=== PATIENT | male | born 1945 | race Caucasian/White ===

== ENCOUNTER 2018-09-02 21:04 | Emergency (ER) | payer MEDICARE, OTHER ==
[2018-09-02] MEDS ORDERED: Ibuprofen TAB* 600 MG PO ONE (21:36)
[2018-09-02] MEDS ORDERED: Sulfamethox/Trimethoprim DS 800/160* TAB PO ONE ×2 (21:36)
--- NOTE | 2018-09-02 21:38 | UC ---
HPI Febrile Illness - HPI Summary HPI Summary: 72-year-old male comes in with a chief complaint of dysuria fevers chills and feeling ill. Symptoms started this morning. He reports this is what he feels like when he has urinary tract infection. No flank pain. He does have some suprapubic discomfort. - History of Current Complaint Chief Complaint: [facility]CG[facility] Time Seen by Provider: 09/02/18 21:12 Pain Intensity: 7 - Allergy/Home Medications Allergies/Adverse Reactions: Allergies Allergy/AdvReac Type Severity Reaction Status Date / Time No Known Allergies Allergy Verified 09/02/18 21:15 Home Medications: Home Medications Atorvastatin* [Lipitor 10 MG*] 1 tab DAILY 09/02/18 [History Confirmed 09/02/18] Tamsulosin CAP* [Flomax CAP*] 1 tab DAILY 09/02/18 [History Confirmed 09/02/18] PMH/Surg Hx/FS Hx/Imm Hx Previously Healthy: Yes - BPH - Surgical History Surgical History: None - Family History Known Family History: Positive: Non-Contributory - Social History Alcohol Use: Rare Substance Use Type: None Smoking Status (MU): Never Smoked Tobacco Review of Systems All Other Systems Reviewed And Are Negative: Yes Constitutional: Positive: Fever, Chills Skin: Positive: Negative Eyes: Positive: Negative ENT: Positive: Negative Respiratory: Positive: Negative Cardiovascular: Positive: Negative Gastrointestinal: Positive: Other - SEE HPI Genitourinary: Positive: Dysuria, Frequency, Urgency Motor: Positive: Negative Neurovascular: Positive: Negative Musculoskeletal: Positive: Negative Neurological: Positive: Negative Psychological: Positive: Negative Is Patient Immunocompromised?: No Physical Exam Triage Information Reviewed: Yes Appearance: No Pain Distress, Well-Nourished, Ill-Appearing - MILD Vital Signs: Initial Vital Signs Temp 100.9 F 09/02/18 21:15 Pulse 88 09/02/18 21:15 Resp 16 09/02/18 21:15 BP 167/83 09/02/18 21:15 Pulse Ox 100 09/02/18 21:15 Vital Signs Reviewed: Yes Eye Exam: Normal Eyes: Positive: Conjunctiva Clear Neck: Positive: Supple Respiratory: Positive: Lungs clear, Normal breath sounds, No respiratory distress Cardiovascular: Positive: RRR Abdomen Description: Positive: Soft, Other: - MILD SUPRAPUBIC DISCOMFORT. Negative: CVA Tenderness (R), CVA Tenderness (L) Musculoskeletal Exam: Normal Musculoskeletal: Positive: Strength Intact, ROM Intact Neurological: Positive: Alert, Muscle Tone Normal Psychological: Positive: Age Appropriate Behavior Skin Exam: Normal Course/Dx - Course Course Of Treatment: In clinic patient was given Bactrim DS 1 by mouth he was also given ibuprofen 600 mg by mouth for the fever. We discussed that if he continued to feel ill or got worse he needs to go the emergency department for evaluation and care. - Diagnoses Provider Diagnosis: UTI (urinary tract infection) Discharge - Sign-Out/Discharge Documenting (check all that apply): Patient Departure All imaging exams completed and their final reports reviewed: No Studies - Discharge Plan Condition: Stable Disposition: HOME Prescriptions: Sulfamethox/Trimethoprim DS* [Bactrim DS 800/160 TAB*] 1 tab PO BID #18 tab Patient Education Materials: Urinary Tract Infection in Men (ED) Referrals: [facility] [place] PHYS[facility]IAN REFERRAL [Outside] Additional Instructions: FOLLOW UP WITH YOUR DOCTOR IF NOT COMPLETELY IMPROVED. GO TO THE EMERGENCY DEPARTMENT IF WORSE; CONTINUED FEVER, YOU FEEL LIKE PASSING OUT, YOU FEEL ILL, CONFUSION OR ANY QUESTIONS OR CONCERNS. - Billing Disposition and Condition Condition: STABLE Disposition: Home
[2018-09-02 22:02] VITALS: BP 136/74
--- NOTE | 2018-09-05 07:48 | UC ---
- Progress Note Progress Note: Urine culture preliminary report reviewed today Escherichia coli 25-50,000 CFU/mL Patient is on Bactrim DS Await final culture sensitivity reports No change in plan Course/Dx - Diagnoses Provider Diagnoses: UTI (urinary tract infection) Discharge - Sign-Out/Discharge Documenting (check all that apply): Post-Discharge Follow Up All imaging exams completed and their final reports reviewed: No Studies - Discharge Plan Condition: Stable Disposition: HOME Prescriptions: Sulfamethox/Trimethoprim DS* [Bactrim DS 800/160 TAB*] 1 tab PO BID #18 tab Patient Education Materials: Urinary Tract Infection in Men (ED) Referrals: [facility] [place] PHYSICIAN REFERRAL [Outside] Additional Instructions: FOLLOW UP WITH YOUR DOCTOR IF NOT COMPLETELY IMPROVED. GO TO THE EMERGENCY DEPARTMENT IF WORSE; CONTINUED FEVER, YOU FEEL LIKE PASSING OUT, YOU FEEL ILL, CONFUSION OR ANY QUESTIONS OR CONCERNS. - Billing Disposition and Condition Condition: STABLE Disposition: Home
== END 2018-09-02 21:55 | disposition home or self-care (01) ==
LOC: UCCORT 21:04
DX: N39.0 Urinary tract infection, site not specified (principal); B96.20 Unspecified Escherichia coli [E. coli] as the cause of diseases classified elsewhere
CPT/HCPCS: 81003; 87077; 87086; 87186; 99203; A9270-GY; G0463